=== PATIENT | male | born 1965 | race Caucasian/White ===

== ENCOUNTER 2020-04-28 14:34 | Observation (INO) | payer BC, SELFPAY ==
[2020-04-28 14:39] VITALS: BP 143/97; PULSE 85; RESP 16; TEMP 36.7; O2SAT 98
--- NOTE | 2020-04-28 14:45 | DI.US_ITS ---
EXAM: US LOWER EXTREMITY VENOUS LT CLINICAL HISTORY: swelling, pain TECHNIQUE: Grayscale, color, and doppler imaging of the deep venous system of the lower extremity w as performed. COMPARISON: No exams were available for comparison FINDINGS: This is a very positive study for extensive clot load. There is abundant intraluminal thrombus involving all the deep veins at and below the inguinal ligame nt including the common femoral vein, the entire length of the femoral vein, the entire length of the left popliteal vein and extending to involve the calf veins including the visualized posterior tibia l veins and peroneal veins. The greater saphenous vein appears patent. IMPRESSION: 1. Positive study as described above with extensive DVT throughout the left lower extremity. 2. There is sparing of the ipsilateral greater saphenous vein. Report called by myself to ER. DATA REPOSITORY:
--- NOTE | 2020-04-28 15:03 | W.ED.GENAD ---
Discharge Plan Disposition Patient Disposition: [facility] INPATIENT Condition: Serious Discharge Details Chief Complaint: Vascular Clinical Impression: Left leg DVT Admit Date/Time: 04/28/20 18:10 Admit Provider: Haleigh Glover Attending Provider: Haleigh Glover Primary Care Provider: Unknown,Unknown ED Provider: Donovan Loya Discharge Data Discharge Date/Time-TO BE ENTERED AT DEPARTURE: 04/28/20 18:10 Medical Decision Making 55yo m with new onset LLE swelling and pain over the past 2 weeks with period of immobility. Concern for DVT. US interpreted by radiology: extensive LLE DVT up femoral vein. Patient is saturating well and with no SOB or CP. No concern for PE. Given extensive clot burden, plan to initiate treatment with lovenox and admit for monitoring and likely transition to oral anticoagulation. HPI General Mode of arrival: ambulatory. Date/Time Provider Initiated Documentation: 04/28/20 14:57. Limitations to Documentation: no limitations. Information obtained by: patient. HPI Narrative: 55yo m here with LLE swelling that started 2 weeks ago and has persisted. Swelling is worsening and now moderate with associated pain in left leg posteriorly. No rash. No fever. Pain seems to radiating to left low back. He notes recent immobility feeling depressed and spending a lot of time in bed. Related Data Home Medications Medication Instructions Recorded Confirmed aspirin 325 mg PO DAILY 04/28/20 04/28/20 Allergies Allergy/AdvReac Type Severity Reaction Status Date / Time No Known Allergies Allergy Verified 04/28/20 14:46 General Stated Complaint: Vascular NORMA: 2 Review of Systems All systems reviewed & are unremarkable except as noted in HPI and below Constitutional Constitutional: Denies fever(s) Cardiovascular Cardiovascular: Denies chest pain and Denies dyspnea Respiratory Respiratory: Denies dyspnea ON LICENSE OF [facility] Medical History Myocardial infarction (~11/2008) was at [facility]-clean coronaries-no symptoms since meds. Surgical History History of inguinal hernia repair (~1988) Left Family History Mother No problems noted. Social History Smoking/Tobacco Use Status: Never Smoking risk assessment performed?: Yes Alcohol Intake: current Alcohol Intake frequency: 0-2 drinks per day Alcohol type: beer and wine Drug use: Never Substance use type: does not use Adopted: Yes Caregiver/Support person: No Foster care: No Household members: none Housing: house current occupation: Retired Sexually active: Yes Do you think of yourself as: straight/heterosexual Current gender identity: male Do you feel safe at home: Yes Do you feel safe in your relationship?: Yes Exam Const General: cooperative and no acute distress HENMT Mouth: moist mucous membranes Eyes Conjunctivae: normal conjunctivae Sclera: normal sclerae Neck Neck: trachea midline and supple Resp Auscultation: clear to auscultation bilaterally, no rales, no rhonchi and no wheezes Cardio Jugular venous pressure: no JVD Rate: regular rate and not tachycardic Rhythm: regular rhythm Pulses: dorsalis pedis present bilaterally 2+ GI Palpation: soft, not firm, no guarding, no masses, not rigid and nontender Skin General skin exam: no rashes or lesions noted Neuro General: patient alert, patient awake, patient oriented x3 and tone normal Extrem General: capillary refill normal, calf tenderness on the left and edema Laterality: left Psych Appearance: grossly normal Mental Status: mental status grossly normal Course Vital Signs Vital signs: Vital Signs Temperature 36.7 C 04/28/20 14:39 Pulse 85 04/28/20 14:39 Respiratory Rate 16 04/28/20 14:39 Blood Pressure 143/97 H 04/28/20 14:39 Pulse Oximetry 98 04/28/20 14:39 Temperature 36.7 C 04/28/20 14:39 Temperature Source Temporal Artery Scan 04/28/20 14:39 Pulse 85 04/28/20 14:39 Respiratory Rate 16 04/28/20 14:39 Respiratory Effort Non-Labored 04/28/20 14:45 Blood Pressure 143/97 H 04/28/20 14:39 Blood Pressure Position Sitting 04/28/20 14:39 Pulse Oximetry 98 04/28/20 14:39 Oxygen Delivery Method Room Air 04/28/20 14:39 Oxygen Flow Rate 0 04/28/20 14:39 Pain Level 8 04/28/20 14:39
[2020-04-28 15:10] VITALS: RESP 16
[2020-04-28] MEDS: Ibuprofen 600 MG TAB PO (15:13)
[2020-04-28] MEDS: Acetaminophen 325 MG TAB 650 MG PO ×2 (15:14→21:59)
[2020-04-28 16:26] VITALS: BP 129/79; PULSE 80; RESP 16; TEMP 36.7; O2SAT 99
[2020-04-28] MEDS: Enoxaparin 80 MG/0.8 ML SYR 75 MG SC (16:33)
[2020-04-28 16:48] LABS: Abs Immature Grans 0.03 10^3/uL (0.0-0.06); Absolute Basophil Count 0.06 10^3/uL (0.0-0.2); Absolute Eosinophil Count 0.42 10^3/uL (0.0-0.7); Absolute Lymphocyte Count 2.87 10^3/uL (1.2-3.4); Absolute Monocyte Count 0.82 10^3/uL (0.1-0.8); Absolute Neutrophil Count 4.83 10^3/uL (1.2-6.7); Basophils % 0.7; Eosinophils % 4.7; HCT 43.1 % (40.0-50.0); HGB 14.2 g/dL (13.5-17.5); Immature Grans % 0.3; Lymphocytes % 31.8; MCH 28.6 pg (27.0-33.0); MCHC 32.9 % (32.0-36.0); MCV 86.9 fL (80-95); MPV 9.4 fL (8.0-11.0); Monocytes % 9.1; Neutrophils % 53.4; Nucleated RBC 0 %; Platelet Count 347 10^3/uL (130-400); RBC 4.96 10^6/uL (4.36-5.78); RDW 11.9 % (11.8-14.1); RDW-SD 37.8 fL; WBC 9.03 10^3/uL (4.4-10.8)
--- NOTE | 2020-04-28 16:54 | HPE_ITS ---
Date of service: 04/28/20 Time of Service: 16:54 Assessment and Plan Assessment and plan (1) Left leg DVT: Status: Acute Assessment and plan: Will refer to observation Continue Lovenox 75 mg subcu twice daily We will likely discharge home on DOAC Case management has been consulted EKG ordered CBC basic metabolic panel for a.m. Likely associated with prolonged bedrest over the past couple weeks for d epression Admission discussed with Dr. Glover History of Present Illness History of Present Illness Chief Complaint: left leg pain and swelling Narrative: This is a 55-year-old male patient with no significant past medical history who presented to the emergency department with left lower extremity swelling and discomfort. He reports this has been present for several weeks. He states he lost his job in March at [employer] and has been home depressed and laying around in bed which is not typical of him. He denies any previous history of DVTs he has no chest pain or shortness of breath. He has no known history of malignancies. He denies any suicidal or homicidal ideation. He has been taking aspirin. Work-up in the emergency department includes an ultrasound which shows extensive clot on the left.. Case discussed with hospitalist services and he has been accepted for observation referral and will be started on Lovenox. Review of Systems All systems reviewed & are unremarkable except as noted in HPI and below Constitutional Constitutional: Denies fever(s), Denies headache(s) and Reports lethargy Eyes Eyes: Denies change in vision ENT Ears, Nose, Mouth, and Throat: Denies headache(s) Cardiovascular Cardiovascular: Denies chest pain, Reports leg edema (Left) and Denies dyspnea Respiratory Respiratory: Denies cough and Denies dyspnea Gastrointestinal Gastrointestinal: Denies abdominal pain Musculoskeletal Musculoskeletal: Denies arthralgias and Denies joint swelling Integumentary/Breasts Skin/Breast: Denies new lesions and Denies rash Neurologic Neurologic: Denies headache(s) Hematologic/Lymphatic Hematologic/Lymphatic: Denies easy bleeding and Denies easy bruising [facility] Medical History (Updated 04/28/20 @ 17:01 by Hellen Waggoner NP) Myocardial infarction (~11/2008) was at [facility]-clean coronaries-no symptoms since meds. Surgical History (Updated 06/26/19 @ 08:50 by Lilli Green) History of inguinal hernia repair (~1988) Left Family History (Updated 07/03/19 @ 15:36 by Latonia Martinez RN) Mother No problems noted. Social History (Updated 06/26/19 @ 08:41 by Lilli Green) Smoking/Tobacco Use Status: Never Smoking risk assessment performed?: Yes Alcohol Intake: current Alcohol Intake frequency: 0-2 drinks per day Alcohol type: beer and wine Drug use: Never Substance use type: does not use Adopted: Yes Caregiver/Support person: No Foster care: No Household members: none Housing: house current occupation: Retired Sexually active: Yes Do you think of yourself as: straight/heterosexual Current gender identity: male Do you feel safe at home: Yes Do you feel safe in your relationship?: Yes Meds Home Medications and Allergies Home Medications Medication Instructions Recorded Confirmed Type aspirin 325 mg PO DAILY 04/28/20 04/28/20 History Allergies Allergy/AdvReac Type Severity Reaction Status Date / Time No Known Allergies Allergy Verified 04/28/20 14:46 Exam Const General: cooperative, healthy appearing, comfortable and no acute distress Nutritional Appearance: average body habitus Orientation: alert, awake and oriented x3 HENMT Head: normal to inspection, normocephalic and atraumatic Mouth: oral mucosae normal Resp Effort & Inspection: normal respiratory effort Auscultation: clear to auscultation bilaterally Cardio Rate: regular rate Rhythm: regular rhythm GI Inspection: normal to inspection Palpation: soft Auscultation: normal bowel sounds Skin General skin exam: no rashes or lesions noted Extrem Left lower extremity: edema Results Labs Result diagrams: 04/28/20 16:36 04/28/20 16:36 Labs: Laboratory Results - last 24 hr 04/28/20 04/28/20 16:33 16:36 WBC 9.03 RBC 4.96 Hgb 14.2 Hct 43.1 MCV 86.9 MCH 28.6 MCHC 32.9 RDW 11.9 Plt Count 347 MPV 9.4 Immature Gran % 0.3 Neutrophils % 53.4 Lymphocytes % 31.8 Monocytes % 9.1 Eosinophils % 4.7 Basophils % 0.7 Nucleated RBC % 0 Absolute Neutrophils 4.83 Absolute Lymphocytes 2.87 Absolute Monocytes 0.82 H Absolute Eosinophils 0.42 Absolute Basophils 0.06 SARS-CoV-2 (PCR) Cancelled Nasopharyn COVID-19 PCR Cancelled Ref Test Perform Site Cancelled Last Vital Signs Temp 36.7 C 04/28/20 16:26 Pulse 80 04/28/20 16:26 Resp 16 04/28/20 16:26 BP 129/79 04/28/20 16:26 Pulse Ox 99 04/28/20 16:26 COVID-19 Screening Have you, or household traveled for leisure in last 14 days?: No Had IN PERSON contact w/suspected or confirmed C-19 person: No
--- NOTE | 2020-04-28 17:00 | RT.EKG_ITS ---
APPROVED REPORT Exam: Resting ECG Patient Location: E HR:72 bpm ECG Measurements Heart Rate 72 AXIS GA 156 P 49 QRSd 97 QRS 54 QT 392 T 48 QTc 431 Conclusion Sinus rhythm...normal P axis, V-rate 60- 99
[2020-04-28 17:01] LABS: Source Nasopharynx
[2020-04-28 17:05] LABS: INR 1.1 (0.9-1.1); Prothrombin Time 10.6 sec (9.3-11.0)
[2020-04-28 17:06] LABS: ALT 25 U/L (16-63); AST 16 U/L (15-37); Albumin 3.4 g/dL (3.4-5.0); Alkaline Phosphatase 71 U/L (46-116); Anion Gap 5.1 mmol/L (3-11); BUN 18 mg/dL (7-18); Bilirubin, Total 0.2 mg/dL (0.2-1.0); CO2 29.9 mmol/L (21.0-32.0); Calcium 8.9 mg/dL (8.5-10.1); Chloride 102 mmol/L (98-107); Glucose 100 mg/dL (74-106); Potassium 4.3 mmol/L (3.5-5.1); Sodium 137 mmol/L (136-145); Total Protein 7.1 g/dL (6.4-8.2)
[2020-04-28 17:42] LABS: COVID-19 PCR Negative (Negative); Influenza A PCR Negative (Negative); Influenza B PCR Negative (Negative); RSV PCR Negative (Negative)
[2020-04-28 17:51] VITALS: BP 138/90; PULSE 69; RESP 20; TEMP 37; O2SAT 98
[2020-04-28 18:40] VITALS: BP 138/90; PULSE 72; RESP 20; TEMP 36.8; O2SAT 98
[2020-04-28 23:10] VITALS: BP 133/79; PULSE 74; RESP 16; TEMP 37; O2SAT 97
[2020-04-29] MEDS: Enoxaparin 80 MG/0.8 ML SYR 75 MG SC (05:41)
[2020-04-29 07:09] VITALS: BP 125/78; PULSE 60; RESP 18; TEMP 34.5; O2SAT 97
[2020-04-29 07:21] LABS: Abs Immature Grans 0.03 10^3/uL (0.0-0.06); Absolute Basophil Count 0.04 10^3/uL (0.0-0.2); Absolute Eosinophil Count 0.38 10^3/uL (0.0-0.7); Absolute Lymphocyte Count 2.04 10^3/uL (1.2-3.4); Absolute Monocyte Count 0.52 10^3/uL (0.1-0.8); Absolute Neutrophil Count 3.25 10^3/uL (1.2-6.7); Basophils % 0.6; Eosinophils % 6.1; HCT 42.6 % (40.0-50.0); HGB 13.9 g/dL (13.5-17.5); Immature Grans % 0.5; Lymphocytes % 32.6; MCH 28.5 pg (27.0-33.0); MCHC 32.6 % (32.0-36.0); MCV 87.5 fL (80-95); MPV 9.6 fL (8.0-11.0); Monocytes % 8.3; Neutrophils % 51.9; Nucleated RBC 0 %; Platelet Count 344 10^3/uL (130-400); RBC 4.87 10^6/uL (4.36-5.78); RDW 11.7 % (11.8-14.1); RDW-SD 37.7 fL; WBC 6.26 10^3/uL (4.4-10.8)
[2020-04-29 07:43] LABS: Anion Gap 5.9 mmol/L (3-11); BUN 17 mg/dL (7-18); CO2 28.1 mmol/L (21.0-32.0); Chloride 104 mmol/L (98-107); Glucose 110 mg/dL (74-106); Potassium 4.3 mmol/L (3.5-5.1); Sodium 138 mmol/L (136-145)
[2020-04-29] MEDS: Acetaminophen 325 MG TAB 650 MG PO (09:10)
[2020-04-29] MEDS: Docusate Sodium 100 MG CAP PO (09:10)
--- NOTE | 2020-04-29 10:05 | INITIAL_ITS ---
- If Service Date Differs Date of service: 04/29/20 Time of Service: 10:14 Care Management Initial Assess REASON FOR HOSPITALIZATION:: Left leg DVT PAST MEDICAL HISTORY/PAST SURGICAL HISTORY:: [place], left inguinal hernia repair PREVIOUS FUNCTIONAL STATUS/SOCIAL/FAMILY SUPPORTS:: Gold resides in [facility] and is independent at baseline. He lost his job in March and reports he laid around for a few weeks and attributes this to developing the DVT. CURRENT FUNCTIONAL STATUS:: Gold provided insurance information and was agreeable to new PCP attachment. He deferred discussion around depression s tating he wanted to first focus on medical treatment of DVT. CM encouraged Gold to discuss with his new PCP during first appointment. ADVANCE DIRECTIVES:: None on file Has patient been provided with info about the portal/API?: Yes Did the patient sign up for the portal?: Yes (Previously) CODE STATUS:: Full Code INSURANCE COVERAGE / FINANCIAL ISSUES:: Paulette HALE/BS ID# provided to ACCESS to confirm coverage. CURRENT HOME/COMMUNITY SERVICES/EQUIPMENT:: None currently. PRIMARY CARE PHYSICIAN:: Dr. Mace, [facility] (new assignment) POTENTIAL DISCHARGE NEEDS:: New PCP attachment, insurance confirmation, prescription coordination. PATIENT/FAMILY EDUCATION NEEDS:: Review of discharge instructions, discuss Ask Me Three. ANTICIPATED BARRIERS TO DISCHARGE:: None identified. TRANSPORTATION:: Via private vehicle. PLAN:: Gold will return home when ready per MD. He will follow up with his new PCP at [facility]-Dr. Mace on 05/03/20@6694. New patient paperwork provided. He will have a new prescription [facility]
--- NOTE | 2020-04-29 12:09 | DSE_ITS ---
Date of service: 04/29/20 Time of Service: 12:09 DS: Diagnosis Discharge Diagnosis (1) Left leg DVT: Start date: 04/29/20 Start time: 12:11 Status: Acute Asessment and Plan: Found to have to an abundant intraluminal thrombus involving all the deep veins at and below the inguinal ligament including the common femoral vein, the entire length of the femoral vein, the entire length of the left popliteal vein and extending to involve the calf veins including the visualized posterior tibial veins and peroneal veins. Patient was admitted overnight for obs, initiated on enoxaparin 75 mg, the pharmacy carries 80 mg therefore he will be giving himself 80 mg injections. He will be given 2 doses from our pharmacy. He will be referred to Hemotology at [facility] and follow up with [facility] Dr. Mace in 1 week. Discharge Plan Disposition Patient Disposition: HOME Condition: Stable Discharge Details Reason For Visit: DVT LEFT Admit Date/Time: 04/28/20 18:10 Admit Provider: Haleigh Glover Attending Provider: Haleigh Glover Primary Care Provider: Unknown,Unknown Hospital Course Hospital Course: This is a 55-year-old male patient with no significant past medical history who presented to the emergency department with left lower extremity swelling and discomfort. He reports this has been present for several weeks. He states he lost his job in March at [employer] and has been home depressed and laying around in bed which is not typical of him. He denies any previous history of DVTs he has no chest pain or shortness of breath. He has no known history of malignancies. He denies any suicidal or homicidal ideation. He has been taking aspirin. Work-up in the emergency department includes an ultrasound which shows extensive clot on the left.. Case discussed with hospitalist services and was admitted to obs for further management. He did well overnight, he is being discharged home on enoxaparin BID x 14 weeks with follow up in 1 week. He will need to follow up with Hemolotology and [facility] in 1 week his PCP will need to transition to DOAC in 2 weeks. He states pain to LLE. Enoxparin teaching done by nursing and patient verbalizes that he will be able to self administer injections. He denies CP, SOB, N/V/D. Home Meds and New Rx's Prescriptions: New Nucynta 50 mg tablet 50 mg PO Q6H PRNQty: 20 RF: 0 Continued aspirin 325 mg Tablet 325 mg PO DAILY RF: 0 Discharge Instructions Instructions: Enoxaparin (By injection), Deep Vein Thrombosis (DC) Additional Instructions: Take injections as prescribed Take pain medicine as needed Follow up with Dr. Mace in 1 week, You will need to take injections for 2 weeks then your PCP will switch you to a pill You will need to follow up with [facility] Hematology for further management and work up of DVT Return to Emergency department if you become Short of breath, chest pain, have a fever or your leg becomes worse Stand Alone Forms: Nursing Discharge Form Referrals: Jac Mace MD [MD [facility] STAFF PHYSICIAN] - 05/03/20 9:45 am Activity:: Activity as Tolerated Equipment/Supplies:: No Equipment Needed Diet:: As Tolerated Discharge Orders Discharge Orders: Discharge Order (Routine); Ordered 04/29/20 Ordered By: Kelly Awan DS: Summary Time Spent with Patient providing and/or coordinating discharge services: Greater than 30 minutes Status at Discharge Functional status at discharge: independent ambulation Overall status at discharge: patient is progressing back to baseline Mental Status: mental status grossly normal Speech and Movement: speech and movement normal Mood: congruent mood Affect: normal affect Exam Const General: cooperative, healthy appearing, comfortable and no acute distress Nutritional Appearance: average body habitus Orientation: alert, awake and oriented x3 HENMT Head: normal to inspection, normocephalic and atraumatic Mouth: oral mucosae normal Resp Effort & Inspection: normal respiratory effort Auscultation: clear to auscultation bilaterally Cardio Rate: regular rate Rhythm: regular rhythm GI Inspection: normal to inspection Palpation: soft Auscultation: normal bowel sounds Skin General skin exam: no rashes or lesions noted Extrem Left lower extremity: edema Psych Mental Status: mental status grossly normal Speech and Movement: speech and movement normal Mood: congruent mood Affect: normal affect DS: Data Vitals/I&O Vitals and I&O: Vital Signs Temperature 34.5 C L 04/29/20 07:09 Temperature Source Tympanic 04/29/20 07:09 Pulse 60 04/29/20 07:09 Pulse Rhythm Regular 04/29/20 04:42 Respiratory Rate 18 04/29/20 07:09 Respiratory Effort Non-Labored 04/29/20 04:42 Respiratory Depth Normal 04/29/20 04:42 Respiratory Pattern Normal 04/29/20 04:42 Blood Pressure 125/78 04/29/20 07:09 Blood Pressure Position Sitting 04/28/20 14:39 Pulse Oximetry 97 04/29/20 07:09 Oxygen Delivery Method Room Air 04/29/20 07:09 Oxygen Flow Rate 0 04/29/20 07:09 Pain Level 4 04/29/20 09:10 Intake & Output 04/28/20 04/29/20 04/29/20 23:59 11:59 23:59 Intake Total 480 / 480 Balance 480 / 480 Weight 74.843 kg Intake: Oral 480 / 480 Other: Urine Color Yellow Urine Appearance Clear Clear Urine Odor Normal Comment Patient using bathroom independently Voiding Methods Toilet Data Completed and Pending Completed studies during hospitalization [Text1]: COMPARISON: No exams were available for comparison FINDINGS: This is a very positive study for extensive clot load. There is abundant intraluminal thrombus involving all the deep veins at and below the inguinal ligament including the common femoral vein, the entire length of the femoral vein, the entire length of the left popliteal vein and extending to involve the calf veins including the visualized posterior tibial veins and peroneal veins. The greater saphenous vein appears patent. IMPRESSION: 1. Positive study as described above with extensive DVT throughout the left lower extremity. 2. There is sparing of the ipsilateral greater saphenous vein. Labs on day of discharge: Labs from last 24 hours 04/29/20 04/29/20 04/28/20 06:24 06:24 16:55 WBC 6.26 D RBC 4.87 Hgb 13.9 Hct 42.6 MCV 87.5 MCH 28.5 MCHC 32.6 RDW 11.7 L Plt Count 344 MPV 9.6 Immature Gran % 0.5 Neutrophils % 51.9 Lymphocytes % 32.6 Monocytes % 8.3 Eosinophils % 6.1 Basophils % 0.6 Nucleated RBC % 0 Absolute Neutrophils 3.25 Absolute Lymphocytes 2.04 Absolute Monocytes 0.52 Absolute Eosinophils 0.38 Absolute Basophils 0.04 PT INR Sodium 138 Potassium 4.3 Chloride 104 Carbon Dioxide 28.1 Anion Gap 5.9 BUN 17 Creatinine 1.0 Estimated GFR/1.73 m2 >= 60.00 Glucose 110 H Calcium 9.0 Total Bilirubin AST ALT Alkaline Phosphatase Total Protein Albumin COVID-19 Source Nasopharynx SARS-CoV-2 (PCR) Negative Nasopharyn COVID-19 PCR Influenza Type A (PCR) Negative Influenza Type B (PCR) Negative RSV (PCR) Negative Ref Test Perform Site 04/28/20 04/28/20 04/28/20 16:36 16:36 16:36 WBC 9.03 RBC 4.96 Hgb 14.2 Hct 43.1 MCV 86.9 MCH 28.6 MCHC 32.9 RDW 11.9 Plt Count 347 MPV 9.4 Immature Gran % 0.3 Neutrophils % 53.4 Lymphocytes % 31.8 Monocytes % 9.1 Eosinophils % 4.7 Basophils % 0.7 Nucleated RBC % 0 Absolute Neutrophils 4.83 Absolute Lymphocytes 2.87 Absolute Monocytes 0.82 H Absolute Eosinophils 0.42 Absolute Basophils 0.06 PT 10.6 INR 1.1 Sodium 137 Potassium 4.3 Chloride 102 Carbon Dioxide 29.9 Anion Gap 5.1 BUN 18 Creatinine 1.0 Estimated GFR/1.73 m2 >= 60.00 Glucose 100 Calcium 8.9 Total Bilirubin 0.2 AST 16 ALT 25 Alkaline Phosphatase 71 Total Protein 7.1 Albumin 3.4 COVID-19 Source SARS-CoV-2 (PCR) Nasopharyn COVID-19 PCR Influenza Type A (PCR) Influenza Type B (PCR) RSV (PCR) Ref Test Perform Site 04/28/20 16:33 WBC RBC Hgb Hct MCV MCH MCHC RDW Plt Count MPV Immature Gran % Neutrophils % Lymphocytes % Monocytes % Eosinophils % Basophils % Nucleated RBC % Absolute Neutrophils Absolute Lymphocytes Absolute Monocytes Absolute Eosinophils Absolute Basophils PT INR Sodium Potassium Chloride Carbon Dioxide Anion Gap BUN Creatinine Estimated GFR/1.73 m2 Glucose Calcium Total Bilirubin AST ALT Alkaline Phosphatase Total Protein Albumin COVID-19 Source SARS-CoV-2 (PCR) Cancelled Nasopharyn COVID-19 PCR Cancelled Influenza Type A (PCR) Influenza Type B (PCR) RSV (PCR) Ref Test Perform Site Cancelled PENDING SALE TO [facility] Medical History Myocardial infarction (~11/2008) was at [facility] coronaries-no symptoms since meds. Surgical History History of inguinal hernia repair (~1988) Left Family History Mother No problems noted. Social History Smoking/Tobacco Use Status: Never Smoking risk assessment performed?: Yes Alcohol Intake: current Alcohol Intake frequency: 0-2 drinks per day Alcohol type: beer and wine Drug use: Never Substance use type: does not use Adopted: Yes Caregiver/Support person: No Foster care: No Household members: none Housing: house current occupation: Retired Sexually active: Yes Do you think of yourself as: straight/heterosexual Current gender identity: male Do you feel safe at home: Yes Do you feel safe in your relationship?: Yes
== END 2020-04-29 15:46 | disposition home or self-care (01) ==
LOC: ER 18:05 → MS 18:13
PROVIDERS: Nurse Practitioner Acute Care; Admitting Provider Internal Medicine; Emergency Provider Student in an Organized Health Care Education/Training Program; Visit Provider Internal Medicine
DX: I82.412 Acute embolism and thrombosis of left femoral vein (principal); I82.432 Acute embolism and thrombosis of left popliteal vein; I82.452 Acute embolism and thrombosis of left peroneal vein; I82.442 Acute embolism and thrombosis of left tibial vein; I25.2 Old myocardial infarction
CPT/HCPCS: 36415; 80048; 80053; 93005; 96372; 99217; 99219; 99285; U0003; 85025; 85610; 93010; 93971; G0378; J1650

== ENCOUNTER 2020-05-13 13:53 | Outpatient (REF) | payer BC, SELFPAY ==
[2020-05-13 13:36] LABS: Calculated LDL 205 mg/dL (<100); Cholesterol 283 mg/dL (<200); Glucose 103 mg/dL (74-106); HDL Cholesterol 42 mg/dL (40-60); Triglyceride 184 mg/dL (<150)
== END 2020-05-13 13:54 | disposition home or self-care (01) ==
LOC: NCHCN 13:53
PROVIDERS: PCP Family Medicine; Visit Provider Family Medicine
DX: I82.402 Acute embolism and thrombosis of unspecified deep veins of left lower extremity (principal); E78.5 Hyperlipidemia, unspecified; Z00.8 Encounter for other general examination
CPT/HCPCS: 80061; 82947